=== PATIENT | male | born 1965 | race Caucasian/White ===

== ENCOUNTER → 2025-07-20 | Outpatient (CLI) | payer BC, SELFPAY ==
--- NOTE | 2025-07-20 08:35 | ART_ITS ---
Reason For Study Reason For Study: Iliac artery aneurysm Procedure A bilateral lower extremity continuous wave Doppler with analog waveform analysis and ankle brachial indexes. Left Segmental Pressures Left brachial= 145mmHg. Left posterior tibial artery = 176mmHg. Left dorsalis pedis artery = 167mmHg. Left digit = 142 mmHg. The left dorsalis pedis waveforms are triphasic. The left posterior tibial artery waveforms are triphasic. Right Segmental Pressures Right brachial= 146mmHg. Right posterior tibial artery = 176mmHg. Right dorsalis pedis artery = 167mmHg. Right digit = 139 mmHg. The right dorsalis pedis waveforms are triphasic. The right posterior tibial artery waveforms are triphasic. Indices The right ankle brachial index by the dorsalis pedis is 1.14. The right ankle brachial index by the posterior tibial artery is 1.21. The right digital-brachial index is 0.95. The left ankle brachial index by the dorsalis pedis is 1.14. The left ankle brachial index by the posterior tibial artery is 1.21. The left digital-brachial index is 0.97. VL/Ankle Brachial Index Interpretation Summary Right DONOVAN 1.21, normal. TBI and Doppler/PVR waveforms of the right ankle normal at rest. Left DONOVAN 1.21, normal. TBI and Doppler/PVR waveforms of the left ankle normal a t rest. Ordering Physician: Franci Lewis Referring Physician: Roxanne Amaya Performed By: Jacqueline Romero RVT
--- NOTE | 2025-07-20 08:35 | AAVD_ITS ---
Reason For Study Reason For Study: Iliac artery aneurysm Aorta Measurements Aorta Doppler Measurements Proximal aorta measures1.51 x 1.53cm. in cross-sectional Peak systolic flow velocities within the proximal aorta axis. measure 165.6 cm/sec. Proximal aorta measures1.60cm. in longitudinal axis. Peak systolic flow velocities within the mid aorta measure Mid aorta measures1.72 x 1.69cm. in cross-sectional axis. 163 cm/sec. Mid aorta measures1.73cm. in longitudinal axis. Peak systolic flow velocities within the distal aorta Distal aorta measures1.45 x 1.49cm. in cross-sectional axis.measure 157.8 cm/sec. Distal aorta measures1.46cm. in longitudinal axis. Left Iliac Artery Left iliac artery measures 1.11 x 1.13 cm. in the cross-sectional axis. Left iliac artery measures 1.10 cm. in the longitudinal axis. Peak systolic velocity in the left iliac artery measures 87.8 cm/sec. Right Iliac Artery Right iliac artery measures 147.4 cm. in the cross-sectional axis. Right iliac artery measures 1.84 cm. in the longitudinal axis. Peak systolic velocity in the right iliac artery measures 147.4 cm/sec. Procedure Aorta IVC Iliac vasculature or bypass grafts 41907. Exam performed in department. VL/Abd Aortic/IVC Duplex scan Interpretation Summary Aorta patent, normal caliber. Right iliac artery patent, 1.84 cm aneurysm present Left iliac artery patent, normal caliber. Ordering Physician: Franci Lewis Referring Physician: Roxanne Amaya Performed By: Jacqueline Romero RVT
== END | disposition home or self-care (01) ==
PROVIDERS: Referring Provider Physician Assistant; Visit Provider Physician Assistant
DX: I72.3 Aneurysm of iliac artery (principal)
CPT/HCPCS: 93922; 93978

== ENCOUNTER → 2025-08-31 | Outpatient (CLI) | payer BC, SELFPAY ==
[2025-08-31 18:19] LABS: CRP 3.31 mg/L (0.0-3.0)
[2025-09-02 14:09] LABS: ANTINUCLEAR ANTIBODIES DIRECT Negative (Negative)
[2025-09-06 17:08] LABS: Albumin 3.7 g/dL (2.9-4.4); EBV-VCA IgG 365.0 U/mL (0.0-17.9); Gamma Globulin 1.3 g/dL (0.4-1.8); Immunoglobulin A 366 mg/dL (61-437); Immunoglobulin G 1338 mg/dL (603-1613); Immunoglobulin M 81 mg/dL (20-172); PROEL- TOTAL PROTEIN 7.2 g/dL (6.0-8.5)
== END | disposition home or self-care (01) ==
DX: R53.83 Other fatigue (principal); R53.1 Weakness; Z86.19 Personal history of other infectious and parasitic diseases
CPT/HCPCS: 36415; 82784; 83883; 84165; 85652; 86038; 86140; 86225; 86334; 86617; 86663; 86665